=== PATIENT | female | born 1955 | race African-American/Black ===

== ENCOUNTER 2020-08-26 23:15 | Inpatient (IN) ==
[2020-08-27 01:04] LABS: Basophils % 0.1 % (0.0-0.8); Eosinophils % 0.1 % (0.00-10.9); Hematocrit 27.1 VOL% (35.7-47.0); Immature Granulocytes % 0.9 %; Immature Granulocytes Absolute 0.12 #; Lymphocytes # 0.8 10*3/uL (1.4-4.0); Lymphocytes % 5.8 % (21.3-54.2); Mean Corpuscular HGB Conc 29.5 GM/DL (32-36); Mean Corpuscular Volume 74.7 FL (87-102); Monocytes % 4.8 % (1.7-12.7); Neutrophils % 88.3 % (38.7-73.9); Platelet Count 236 T/CUMM (130-400); Red Blood Count 3.63 MC/CUMM (3.8-5.5); Red Cell Distribution Width 19.5 % (9.3-17.3); White Blood Count 13.7 T/CUMM (4-12)
[2020-08-27 01:13] LABS: INR 1.2
[2020-08-27] MEDS ORDERED: PIPERACILLIN/TAZOBACTAM 3,375 MG in SODIUM CHLORIDE 0.9% 100 ML IV STA (01:13)
[2020-08-27 01:14] LABS: Bacteria,Urine Moderate /HPF (Few); Bilirubin,Urine Negative (Negative); Blood, Urine Small mg/dL (Negative); Glucose,Urine (UA) Negative (Negative); Granular Casts,Urine 8 /LPF (0-1); Hyaline Casts,Urine 14 /LPF (0-3); Ketones,Urine Negative (Negative); Mucus,Urine Occasional /LPF (Occasional); Nitrite,Urine Negative (Negative); Protein,Urine >=500 MG/DL; RBC,Urine 1 /HPF (0-4); Squamous Epithelial Cell,Urine Occasional /HPF (0-10); Urine Appearance Slightly Hazy (Clear); Urine Color Yellow (Yellow); Urine Specific Gravity 1.013 (1.001-1.035); Urine Urobilinogen < 2.0 EU/DL (0.2-1.0)
[2020-08-27 01:21] LABS: Alanine Aminotransferase 15 U/L (13-56); Albumin 2.4 G/DL (3.4-5.0); Alkaline Phosphatase 40 U/L (45-117); Aspartate Amino Transferase 20 U/L (0-37); Bilirubin,Total < 0.39 MG/DL (0.2-1.0); Blood Urea Nitrogen 37 MG/DL (7-18); Calcium 8.5 MG/DL (8.5-10.1); Carbon Dioxide 20 MMOL/L (21-32); Estimated Glom Filtration Rate 16 ML/MIN; Glucose 55 MG/DL (74-106); Osmolality,Calculated 283.5 MOS/KG (273-304); Potassium 3.3 MMOL/L (3.5-5.1); Sodium 139 MMOL/L (136-145); Total Protein 7.4 G/DL (6.4-8.2)
[2020-08-27] MEDS ORDERED: DEXTROSE 50% 25 GM/50 ML VIAL IV STA (01:35)
[2020-08-27] MEDS ORDERED: DEXTROSE 50% 25 GM/50 ML VIAL IV PRN (01:55)
[2020-08-27] MEDS ORDERED: ONDANSETRON 4 MG/2 ML VIAL IV PRN (01:55)
[2020-08-27] MEDS ORDERED: diphenhydrAMINE CAP 25 MG CAPSULE PO PRN (01:55)
[2020-08-27] MEDS ORDERED: MORPHINE 4 MG/1 ML VIAL IV PRN (01:55)
[2020-08-27] MEDS ORDERED: NICOTINE 21 MG/24 HR PATCH TRANSDERM PRN (01:55)
[2020-08-27] MEDS ORDERED: GLUCAGON 1 MG VIAL IM PRN (01:55)
[2020-08-27 02:03] LABS: Burr Cells 1+; Hypochromasia 2+; Microcytosis 2+; Platelet Estimate Normal
[2020-08-27 02:04] LABS: Ovalocytes 1+; Schistocytes Few
[2020-08-27] MEDS: SODIUM CHLORIDE 0.9% 1,000 ML IV SCH ×3 (02:40→23:00)
[2020-08-27] MEDS ORDERED: metroNIDAZOLE INJ 500 MG/100 ML PREMIX IV SCH (06:00)
[2020-08-27] MEDS ORDERED: POTASSIUM CHLORIDE 20 MEQ TABLET PO PRN (07:26)
[2020-08-27] MEDS ORDERED: MAGNESIUM SULF RIDER 2 GM/50 ML PREMIX IV PRN (07:30)
[2020-08-27] MEDS ORDERED: MAGNESIUM SULF RIDER 4 GM/100 ML PREMIX IV PRN (07:30)
[2020-08-27 07:51] LABS: Basophils % 0.2 % (0.0-0.8); Eosinophils # 0.1 10*3/uL (0.0-0.87); Eosinophils % 0.6 % (0.00-10.9); Hematocrit 24.9 VOL% (35.7-47.0); Hemoglobin 7.4 GM/DL (12.0-16.0); Immature Granulocytes % 0.8 %; Lymphocytes % 8.3 % (21.3-54.2); Mean Corpuscular HGB Conc 29.7 GM/DL (32-36); Mean Corpuscular Volume 74.3 FL (87-102); Mean Platelet Volume 10.5 FL (9.6-12.0); Monocytes % 5.9 % (1.7-12.7); Neutrophils % 84.2 % (38.7-73.9); Platelet Count 233 T/CUMM (130-400); Red Blood Count 3.35 MC/CUMM (3.8-5.5); Red Cell Distribution Width 19.6 % (9.3-17.3); White Blood Count 12.3 T/CUMM (4-12)
[2020-08-27 08:05] LABS: Calcium 8.2 MG/DL (8.5-10.1); Osmolality,Calculated 287.4 MOS/KG (273-304); Potassium 3.1 MMOL/L (3.5-5.1)
[2020-08-27 08:09] LABS: % Iron Saturation 9.3 % (18-50); Ferritin 162.2 ng/ml (8-252)
[2020-08-27 08:18] LABS: Folate 22.79 NG/ML (5.38-24.0); Vitamin B12 645 PG/ML (211-911)
[2020-08-27 08:23] LABS: Hypochromasia 3+; Schistocytes Few; Target Cells Few
[2020-08-27 08:25] LABS: Acanthocytes Few; Microcytosis 3+; Platelet Estimate Normal; Tear Drop Cells Slight
[2020-08-27 08:51] LABS: Sedimentation Rate-Westergren 116 MM/HR (0-30)
[2020-08-27] MEDS: CIPROFLOXACIN INJ 400 MG/200 ML PREMIX IV SCH (09:25)
[2020-08-27] MEDS: ROSUVASTATIN 10 MG TABLET PO SCH (09:25)
[2020-08-27] MEDS: amLODIPine 5 MG TABLET PO SCH (09:26)
[2020-08-27 10:26] LABS: Hemoglobin A1 (Alkaline) 98.3 % (96.5-98.5); Hemoglobin A2 (Alkaline) 1.7 % (1.5-3.5)
[2020-08-27] MEDS: INSULIN LISPRO 100 UNIT/ML SUBCUT SCH ×3 (12:46→21:26)
[2020-08-27] MEDS ORDERED: PIPERACILLIN/TAZOBACTAM 3,375 MG in SODIUM CHLORIDE 0.9% 100 ML IV SCH (14:00)
[2020-08-27] MEDS: metroNIDAZOLE INJ 500 MG/100 ML PREMIX IV SCH ×2 (14:24→21:19)
[2020-08-27] MEDS: FERROUS SULFATE 325 MG TABLET PO SCH ×2 (14:24→17:24)
[2020-08-28] MEDS: metroNIDAZOLE INJ 500 MG/100 ML PREMIX IV SCH ×3 (04:51→20:43)
[2020-08-28 05:46] LABS: Basophils % 0.3 % (0.0-0.8); Eosinophils # 0.2 10*3/uL (0.0-0.87); Eosinophils % 2.2 % (0.00-10.9); Hematocrit 24.4 VOL% (35.7-47.0); Hemoglobin 7.5 GM/DL (12.0-16.0); Lymphocytes # 1.1 10*3/uL (1.4-4.0); Lymphocytes % 10.9 % (21.3-54.2); Mean Corpuscular HGB Conc 30.7 GM/DL (32-36); Mean Corpuscular Volume 73.7 FL (87-102); Monocytes % 5.9 % (1.7-12.7); Neutrophils % 79.7 % (38.7-73.9); Platelet Count 217 T/CUMM (130-400); Red Blood Count 3.31 MC/CUMM (3.8-5.5); Red Cell Distribution Width 19.9 % (9.3-17.3); White Blood Count 10.3 T/CUMM (4-12)
[2020-08-28 06:04] LABS: Alanine Aminotransferase 11 U/L (13-56); Alkaline Phosphatase 34 U/L (45-117); Aspartate Amino Transferase 17 U/L (0-37); Bilirubin,Total < 0.39 MG/DL (0.2-1.0); Blood Urea Nitrogen 33 MG/DL (7-18); Calcium 8.2 MG/DL (8.5-10.1); Carbon Dioxide 20 MMOL/L (21-32); Estimated Glom Filtration Rate 17 ML/MIN; Glucose 78 MG/DL (74-106); Hypochromasia 1+; Microcytosis 1+; Osmolality,Calculated 288.1 MOS/KG (273-304); Platelet Estimate Adequate; Potassium 3.4 MMOL/L (3.5-5.1); Sodium 142 MMOL/L (136-145); Total Protein 6.6 G/DL (6.4-8.2)
[2020-08-28] MEDS: PANTOPRAZOLE 40 MG TABLET PO SCH (06:18)
[2020-08-28] MEDS: INSULIN LISPRO 100 UNIT/ML SUBCUT SCH ×4 (07:38→20:44)
[2020-08-28] MEDS: SODIUM CHLORIDE 0.9% 1,000 ML IV SCH (08:26)
[2020-08-28] MEDS: amLODIPine 5 MG TABLET PO SCH ×2 (08:26→09:35)
[2020-08-28] MEDS: ROSUVASTATIN 10 MG TABLET PO SCH (08:26)
[2020-08-28] MEDS: FERROUS SULFATE 325 MG TABLET PO SCH ×3 (08:26→16:50)
[2020-08-28] MEDS: CIPROFLOXACIN INJ 400 MG/200 ML PREMIX IV SCH (09:42)
[2020-08-28] MEDS: SODIUM CHLOR 0.45% KCL 20 MEQ 20 MEQ/1,000 ML BAG IV SCH ×2 (10:51→20:38)
[2020-08-28] MEDS: hydrALAZINE 20 MG/1 ML VIAL IV PRN (16:51)
[2020-08-28] MEDS: FLUTICASONE 50 MCG NASAL SPRAY 16 GM BOTTLE BOTH NARES SCH (21:43)
[2020-08-28 22:52] LABS: Microalbum/Creat Ratio Random 3530.4 RATIO (0-30)
[2020-08-29] MEDS: metroNIDAZOLE INJ 500 MG/100 ML PREMIX IV SCH (04:32)
[2020-08-29] MEDS: hydrALAZINE 20 MG/1 ML VIAL IV PRN (04:34)
[2020-08-29 04:45] LABS: Basophils # 0.1 10*3/uL (0.0-0.2); Basophils % 0.5 % (0.0-0.8); Eosinophils # 0.3 10*3/uL (0.0-0.87); Eosinophils % 2.9 % (0.00-10.9); Hematocrit 27.5 VOL% (35.7-47.0); Hemoglobin 8.4 GM/DL (12.0-16.0); Immature Granulocytes % 1.8 %; Immature Granulocytes Absolute 0.17 #; Lymphocytes # 0.9 10*3/uL (1.4-4.0); Lymphocytes % 9.7 % (21.3-54.2); Mean Corpuscular HGB Conc 30.5 GM/DL (32-36); Mean Corpuscular Volume 72.6 FL (87-102); Mean Platelet Volume 11.6 FL (9.6-12.0); Neutrophils % 78.1 % (38.7-73.9); Red Blood Count 3.79 MC/CUMM (3.8-5.5); Red Cell Distribution Width 19.2 % (9.3-17.3); White Blood Count 9.6 T/CUMM (4-12)
[2020-08-29 04:47] LABS: Platelet Count 293 T/CUMM (130-400)
[2020-08-29 05:04] LABS: Hypochromasia 1+; Microcytosis 1+; Ovalocytes Slight; Platelet Estimate Adequate
[2020-08-29] MEDS: PANTOPRAZOLE 40 MG TABLET PO SCH (06:13)
[2020-08-29] MEDS: INSULIN LISPRO 100 UNIT/ML SUBCUT SCH ×2 (07:12→12:34)
[2020-08-29 07:39] LABS: Calcium 8.4 MG/DL (8.5-10.1); Osmolality,Calculated 281.5 MOS/KG (273-304); Potassium 3.4 MMOL/L (3.5-5.1)
[2020-08-29] MEDS: FERROUS SULFATE 325 MG TABLET PO SCH ×2 (08:34→12:34)
[2020-08-29] MEDS: ROSUVASTATIN 10 MG TABLET PO SCH (08:35)
[2020-08-29] MEDS: FLUTICASONE 50 MCG NASAL SPRAY 16 GM BOTTLE BOTH NARES SCH (08:35)
[2020-08-29] MEDS: CIPROFLOXACIN INJ 400 MG/200 ML PREMIX IV SCH (08:35)
[2020-08-29] MEDS: amLODIPine 5 MG TABLET PO SCH (08:35)
[2020-08-29] MEDS ORDERED: carvediloL 6.25 MG TABLET PO SCH (09:00)
[2020-08-29 11:51] VITALS: BP 184/84
[2020-08-29] MEDS: SODIUM CHLOR 0.45% KCL 20 MEQ 20 MEQ/1,000 ML BAG IV SCH (12:35)
== END 2020-08-29 13:15 | disposition home health service (06) | DRG 392 ==
LOC: EDUNIT# → EDBD → N.ED 23:15 → N.EDINP 23:15 → SUATTDRO 08-27 01:55 → OBSVTOIN 08-27 01:55 → N.EDINP 08-27 03:32 → N.5E 08-27 04:04
PROVIDERS: ADMIT Internal Medicine; ATTEND Phlebology